=== PATIENT | male | born 1950 | race Caucasian/White ===

== ENCOUNTER 2023-10-21 12:08 | Outpatient (CLI) | payer MEDICARE ==
[~2023-10-21 12:08] MED LIST: Magnevist 469MG/ML 20 ML VIAL ONE
== END 2023-10-21 12:09 | disposition home or self-care (01) ==
LOC: CSHMRI 12:08
PROVIDERS: ATTEND Urology
DX: N40.1 Benign prostatic hyperplasia with lower urinary tract symptoms (principal); R97.20 Elevated prostate specific antigen [PSA]
CPT/HCPCS: 72197; 82565; A9579